=== PATIENT | female | born 1990 | race African-American/Black ===

== ENCOUNTER 2017-06-10 13:30 | Emergency (ER) | payer OTHER ==
[~2017-06-10] VITALS: Ht 165.1 cm; Wt 59.0 kg
[~2017-06-10 13:30] MED LIST: AURALGAN OTIC1 DROP RIGHT EAR; CIPROFLOXACIN500 M2 ORAL; FLOXIN OTIC10 DROP OT; NKM; PHENAZOPYRIDIN200 MG ORAL
[2017-06-10] MEDS ORDERED: IRON18 M1 PO (13:44)
[2017-06-10] MEDS ORDERED: PREDNISONE20 MG ORAL (14:34)
[2017-06-10] MEDS ORDERED: BENADRYL25 MG ORAL (14:34)
[2017-06-10 14:41] VITALS: BP 124/73
--- NOTE | 2017-06-10 18:33 | Emergency Room Report ---
History of Present Illness General Chief Complaint: General Complaint Source: Patient Present Illness HPI The patient is a 27-year-old female presenting for possible allergic reaction. She noticed red bumps on her face yesterday which has now spread to her neck and arms. She denies any known allergies. She denies using any new products. She states that this began as itching sensation. She then applied rubbing alcohol to the areas and is having burning. She is also experiencing feelings of shortness of breath. She denies other symptoms including fever, chills, sore throat, cough, dizziness Allergies: Coded Allergies: No Known Allergies (Unverified , 07/24/13) Patient History Past Medical History: see triage record Pertinent Family History: none Last Menstrual Period: 01/2017. Now: No - Miscarriage 04/26/17. : 2 Para: 0 Reviewed Nursing Documentation: PMH: Agreed, PSxH: Agreed Review of Systems All Other Systems: negative except mentioned in HPI Physical Exam Vital Signs Date Time Temp Pulse Resp B/P (MAP) Pulse Ox O2 Delivery O2 Flow Rate FiO2 06/10/17 13:39 98.8 59 20 124/73 99 Sp02 EP Interpretation: reviewed, normal General Appearance: no apparent distress, alert, GCS 15, non-toxic Head: normocephalic, atraumatic Eyes: bilateral eye normal inspection, bilateral eye PERRL ENT: hearing grossly normal, normal pharynx, no angioedema, normal voice Neck: full range of motion, supple/symm/no masses Respiratory: chest non-tender, lungs clear, normal breath sounds, speaking full sentences Cardiovascular #1: regular rate, rhythm, no edema Musculoskeletal: back normal, gait/station normal, normal range of motion, non- tender Neurologic: alert, oriented x3, responsive, motor strength/tone normal, sensory intact, speech normal Psychiatric: judgement/insight normal, memory normal, mood/affect normal, no suicidal/homicidal ideation Skin: normal color, warm/dry, well hydrated, rash - maculopapular lesions on face, neck, and arms Lymphatic: no adenopathy Medical Decision Making PA Attestation Dr. Edward is my supervising physician. Patient management was discussed with my supervising physician Diagnostic Impression: Primary Impression: Allergic reaction Qualified Codes: T78.40XA - Allergy, unspecified, initial encounter ER Course The patient is a 27-year-old female presenting for possible allergic reaction Ddx considered include but not limited to insect bite, contact dermatitis, acne , eczema, cellulitis, among others PE: afebrile. NAD maculopapular lesions on face, neck, back, and arms RRR Lungs CTA bilat. No resp distress No angioedema. oropharynx is patent The patient will be treated for allergic reaction with Benadryl and prednisone. She will followup with her primary doctor. She was told allergy testing may be needed. ER precautions are given Last Vital Signs Date Time Temp Pulse Resp B/P (MAP) Pulse Ox O2 Delivery O2 Flow Rate FiO2 06/10/17 13:39 98.8 59 20 124/73 99 Status: improved Disposition: HOME, SELF-CARE Condition: Improved Scripts Prednisone* (PREDNISONE*) 20 Mg Tablet 40 MG ORAL DAILY, #8 TAB Prov: TIEN GARCIA.Sukhwinder 06/10/17 Diphenhydramine Hcl* (BENADRYL*) 25 Mg Capsule 25 MG ORAL Q6H Y for Itching, #20 CAP Prov: TIEN GARCIA 06/10/17 Referrals: [facility],REFERRING (PCP) Patient Instructions: Pruritus Additional Instructions: I discussed my findings with the patient. All questions and concerns have been answered. Treatment and medication compliance have been addressed. I advised the patient that they need to follow up with PMD in 3-5 days. Return to ED if symptoms worsen, new symptoms arise, or if needed for any reason. Patient verbalized understanding of discharge instructions. TIEN GARCIA Jun 10, 2017 18:33
== END 2017-06-10 14:41 | disposition home or self-care (01) ==
LOC: EMR 14:40
DX: T78.40XA Allergy, unspecified, initial encounter (principal); R21 Rash and other nonspecific skin eruption; X58.XXXA Exposure to other specified factors, initial encounter; Y92.9 Unspecified place or not applicable
CPT/HCPCS: 99283; J7512

== ENCOUNTER 2018-02-13 22:40 | Emergency (ER) | payer SELFPAY ==
[~2018-02-13] VITALS: Ht 165.1 cm; Wt 64.0 kg
[~2018-02-13 22:40] MED LIST changes: +BENADRYL25 MG ORAL; +IRON18 M1 PO; +PREDNISONE20 MG ORAL
[2018-02-13] MEDS ORDERED: NKM (22:53)
[2018-02-13 23:05] VITALS: BP 115/77
[2018-02-13] MEDS ORDERED: MUPIROCIN22 GM TOPIC (23:12)
[2018-02-13] MEDS ORDERED: BACTRIM DS TAB1 EAC1 ORAL (23:12)
--- NOTE | 2018-02-13 23:13 | Emergency Room Report ---
History of Present Illness General Chief Complaint: Skin Rash/Abscess Source: Patient Present Illness HPI This is a 28-year-old female with no significant past medical history. She presents with bug bite/spider bite to her legs. Onset for last 2 days. She's been scratching it. The one on her right ankle is swollen increasing redness. No drainage. No fever chills but no nausea no vomiting. Itchy in nature. No other complaint. Pain is 7 out of 10. Allergies: Coded Allergies: No Known Allergies (Unverified , 07/24/13) Patient History Past Medical History: none, see triage record, old chart reviewed Past Surgical History: none Pertinent Family History: none Social History: Denies: smoking Now: No Immunizations: other Reviewed Nursing Documentation: PMH: Agreed; PSxH: Agreed Nursing Documentation-PMH Past Medical History: No History, Except For Review of Systems Eye: Denies: eye pain, blurred vision ENT: Denies: ear pain, nose congestion, throat swelling Respiratory: Denies: cough, shortness of breath Cardiovascular: Denies: chest pain, palpitations Gastrointestinal: Denies: abdominal pain, diarrhea, nausea, vomiting Musculoskeletal: Denies: back pain, joint pain Skin: Denies: rash Neurological: Denies: headache, numbness Endocrine: Denies: increased thirst, increased urine Hematologic/Lymphatic: Denies: easy bruising All Other Systems: negative except mentioned in HPI Physical Exam Vital Signs Date Time Temp Pulse Resp B/P (MAP) Pulse Ox O2 Delivery O2 Flow Rate FiO2 02/13/18 22:49 98.2 67 18 115/77 99 Room Air 98.2 vitals normal Sp02 EP Interpretation: reviewed, normal General Appearance: well appearing, no apparent distress, alert Head: normocephalic, atraumatic Eyes: bilateral eye PERRL, bilateral eye EOMI ENT: hearing grossly normal, normal pharynx Neck: full range of motion, supple, no meningismus Respiratory: chest non-tender, lungs clear, normal breath sounds Cardiovascular #1: regular rate, rhythm, no murmur Gastrointestinal: normal bowel sounds, non tender, no mass, no organomegaly, no bruit, non-distended Musculoskeletal: back normal, gait/station normal, normal range of motion, other - Bilateral lower extremities with small dry one to 2 cm lesion scattered throughout. Right ankle with one lesion that is about 2 cm with surrounding erythema and edema to the ankle. No abscess. No crepitance. Neurologic: alert, oriented x3 Psychiatric: mood/affect normal Skin: warm/dry Medical Decision Making Diagnostic Impression: Primary Impression: Cellulitis of right ankle ER Course Patient with scatter cellulitis. Most likely MRSA. No evidence of any necrotizing fasciitis or abscess that need to be I and D. We'll discharge home. Last Vital Signs Date Time Temp Pulse Resp B/P (MAP) Pulse Ox O2 Delivery O2 Flow Rate FiO2 02/13/18 23:05 98.2 75 18 115/77 99 Room Air 98.2 Status: improved Disposition: HOME, SELF-CARE Condition: Stable Scripts Trimethoprim/Sulfamethoxazole 160/800* (BACTRIM DS TABLET*) 1 Each Tablet 1 TAB ORAL Q12H, #14 TAB 0 Refills Prov: DARA RADER M.D. 02/13/18 Mupirocin* (MUPIROCIN*) 22 Gm Oint...g. 1 APPLIC TOPIC THREE TIMES A DAY, #22 GM Prov: DARA RADER M.D. 02/13/18 Referrals: [facility]ERR[facility] (PCP) Additional Instructions: Keep wound clean. Clean with hydrogen peroxide first. Then apply antibiotic ointment. Follow-up with your DrJamison in 3-5 days for recheck. Return if symptom worsen. DARA RADER M.D. Feb 13, 2018 23:13
[2018-02-13] MEDS ORDERED: Bacitracin Oint UD TOPIC ONE (23:15)
[2018-02-13] MEDS ORDERED: Bactrim-DS 1 tab ORAL ONE (23:15)
[2018-02-13 23:33] VITALS: BP 115/77
== END 2018-02-13 23:33 | disposition home or self-care (01) ==
LOC: EMR 23:06
DX: L03.115 Cellulitis of right lower limb (principal)
CPT/HCPCS: 99283